=== PATIENT | female | born 1975 | race Caucasian/White ===

== ENCOUNTER 2017-05-04 14:43 | Observation (INO) | payer OTHER ==
[~2017-05-04] VITALS: Ht 162.6 cm; Wt 47.5 kg
[2017-05-04 14:47] VITALS: BP 128/84; PULSE 88; RESP 16; O2SAT 100
--- NOTE | 2017-05-04 15:23 | ED.REPORT ---
HPI-Abd Pain F Under 41 Date of Service May 04, 2017 ED Provider: Laura Martinez MD Pt is a 41 year old female with a hx of terminal ovarian cancer presenting to the ED complaining of a colostomy blockage. She states that she has not had any output from her colostomy bag for the last 3 days. She has had some prolapse of the ostomy that was always reducible in the past, now her ostomy is swollen, firm and painful with only blood tinged liquid and gas in the bag. 2 weeks ago she began to have suprapubic pain and swelling, initially significant vomiting that is now nausea and vomiting every couple days. urinary incontinence ( leakage), and swelling of her lymph nodes. She had radiation in December 2016, and had chemo a few years ago, but is no longer in treatment because the cancer has progressed so far. She has a fentanyl patch and takes oxycodone but does not usually use them, used last week but not currently. She takes Letrozole daily as a cancer treatment. The pt is visiting from the [facility] where she has had all prior care, she has scheduled a return home in 3 days due to her recent health issues. Nursing Notes Stated Complaint: CANCER/POSS BLOCKAGE W/COLOSTOMY Chief Complaint: Female Abdominal Pain Nursing Notes Reviewed: Yes Allergies: Coded Allergies: No Known Allergies (Unverified , 05/04/17) General Time Seen by MD: 15:05 Chief Complaint Other (Colostomy blockage) Hx Obtained From: Patient Arrived By: Walk-in Sudden in Onset?: No Onset Occurred: 3 days ago Symptom Duration: Since onset Progression since Onset: Constant Location: : Pelvis: Suprapubic Quality: Painful Severity: Current: Moderate Severity: Maximum: Severe Recent Healthcare: Recent doctor visit, Recent hospitalization Similar Sx Previous: Yes Past Medical History Past Medical History Terminal ovarian cancer Past Surgical History Colostomy, splenectomy, hysterectomy, oophorectomy Smoking History Unknown if Ever Smoker Social History Other Social History: From out of town Ambulatory Status Independent Review of Systems Abdominal swelling, problems with ostomy bag, swollen lymph nodes GI: Reports: Abdominal pain, Nausea, Vomiting Female: Reports: Incontinence Complete sys rev & neg: except as marked. Physical Exam Initial Vital Signs Vital Signs (First) Date Time Temp Pulse Resp B/P Pulse Ox O2 Delivery O2 Flow Rate FiO2 05/04/17 14:47 36.9 88 16 128/84 100 Room Air Initial VS: Reviewed Head / Eyes: Atraumatic, Normocephalic, PERRL ENT: Mucous membranes moist, Conjunctiva normal, No scleral icterus Extremities: Vascular intact, Neuro intact, No swelling, No tenderness Skin: Warm, Dry, No cyanosis Neurologic: Alert, Oriented, Nonfocal Psychiatric: Mood/affect normal, Behavior normal, Normal thought content General/Constitutional: Awake, Alert, No acute distress Respiratory / Chest: Atraumatic, Breath sounds NL, Breath sounds = bilat, No respiratory distress Cardiovascular: Heart rate NL, Regular rhythm, Heart sounds NL, No gallop, No murmurs, No rubs, Cap refill not delayed Abdomen: Atraumatic Tenderness/Guarding/Rebound: Positive: Tender RLQ... (Moderate) Bowel Sounds / Distention: Positive: Distention mild RLQ firm swelling that is tender. Tenderness at the ostomy bag. Colostomy erythematous and swollen. Serous fluid in ostomy bag. Back: Atraumatic, Inspection NL Lymphatic: No gross adenopathy Small lymph left axilla. Interpretation & Diagnostics Lab Results Interpretation Result Diagram: 05/04/17 1555 05/04/17 1555 Test 05/04/17 15:55 05/04/17 18:44 05/04/17 23:26 White Blood Count 8.9th/mm3 (3.8-10.1) Red Blood Count 3.61mil/mm3 (3.90-5.20) Hemoglobin 11.7g/dL (12.0-15.6) Hematocrit 35.8% (35.0-46.0) Mean Corpuscular Volume 99.2fL (81-100) Mean Corpuscular Hemoglobin 32.4pg (27.0-35.0) Mean Corpuscular Hemoglobin Concent 32.7% (32.0-37.0) Red Cell Distribution Width 13.1% (12.3-15.4) Platelet Count 407bil/L (150-400) Sodium Level 140mEq/L (134-144) Potassium Level 3.8mEq/L (3.5-5.2) Chloride Level 97mEq/L (97-108) Carbon Dioxide Level 28mmol/L (18-29) Blood Urea Nitrogen 14mg/dL (6-24) Creatinine 0.66mg/dL (0.57-1.00) Estimat Glomerular Filtration Rate 142mL/min (>59) Glucose Level 93mg/dL (60-99) Calcium Level 9.2mg/dL (8.5-10.1) Total Bilirubin 0.2mg/dL (0.0-1.2) Aspartate Amino Transf (AST/SGOT) 16U/L (0-50) Alanine Aminotransferase (ALT/SGPT) 9U/L (0-32) Alkaline Phosphatase 88U/L (25-150) Total Protein 7.6g/dL (6.4-8.4) Albumin 3.8g/dL (3.4-5.0) Hold Urine Received (Received) Urine Color Yellow (YELLOW) Urine Appearance Hazy (CLEAR,HAZY) Urine pH 7.5 (5.0-8.0) Urine Specific [place] 1.010 (1.003-1.035) Urine Protein Negativemg/dL (NEG,TRACE) Urine Glucose (UA) Negativemg/dL (NEGATIVE) Urine Ketones Negativemg/dL (NEGATIVE) Urine Occult Blood Negative (NEGATIVE) Urine Nitrite Negative (NEGATIVE) Urine Bilirubin Negative (NEGATIVE) Urine Urobilinogen Normalmg/dL (NORMAL) Urine Leukocyte Esterase Small (NEGATIVE) Urine RBC 0-2/hpf (0-2) Urine WBC 6-10/hpf (0-5) Urine Epithelial Cells Few/hpf (NONE-MOD) Urine Crystals None seen (NONE SEEN) Urine Bacteria Few/hpf (NONE-FEW) Urine Hyaline Casts None/lpf (NONE) Urine Granular Casts None seen (NONE SEEN) Urine Waxy Casts None seen (NONE SEEN) Urine Red Blood Cell Casts None seen (NONE SEEN) Urine White Blood Cell Casts None seen (NONE SEEN) Urine Mucus None seen (None Seen) Urine Trichomonas None seen (NONE SEEN) Urine Yeast None (NONE SEEN) Urinalysis Comment Amorphous sediment Urine Culture Reflexed Indicated CT Abd / Pelvis Interpretation IMPRESSION: Abnormal appearing ostomy along the left side of it suggesting edema or tumor involvement. Generous amount of fecal material throughout the colon. I do not think bowel obstruction is occurring at this point. There are some minimally prominent small bowel loops present. Dictated by: Jeffrey Glass M.D. on 05/04/2017 at 18:57 Study type: Abdom CT oral contrast Interpretation / Wet Read by: Interpret - Radiologist, Discussed w radiologist Re-Eval/Medical Decision Med Decision/Clinical Course Med Decision/Clinical Course: 5-year-old female with history of ovarian cancer with abdominal pain and nausea, CT findings of constipation proximal to her colostomy. Patient's ostomy is edematous, attempted urinary trigger application and reduction, remained edematous but patent. Suspect that her prolapse will not reduce until her proximal constipation improves. She was administered a Fleet enema and did have stool output. She was admitted to the hospital for continued nausea and abdominal discomfort. Patient's urinalysis returned after she was admitted with signs of UTI. Discussed with Laura Aparicio admitting resident, she will determine whether to treat with antibiotics as some ? whether truly UTI. Re-Evaluation/Progress #1: Time of Eval: 19:33 Patient Status: Condition improved Re-Evaluation/Progress Note: Discussed consultation with Dr. Dwyer and plan for applying sugar and then an enema. Pt understands and agrees with plan. Re-Evaluation/Progress #2: Time of Eval: 21:15 Patient Status: Condition improved Re-Evaluation/Progress Note: Ostomy patent to finger, fleet enema administered. Re-Evaluation/Progress #3: Time of Eval: 22:00 Patient Status: Condition improved Re-Evaluation/Progress Note: Large amount of liquid stool in ostomy but pt still feels nauseated, does not feel like she can go home. Discussed plan for admission. Consultation #1: Call Returned at: 16:47 Note: Spoke to radiology. Focal dilatation of common bile duct w/o intrahepatic dilatation, normal LFTs and bilirubin. No cholecystitis on US per radiology. Will order CT ABD and pelvis. Consultation #2: Referral / Consult Name: Jo-Ann Dwyer MD Consulted With: Surgeon Call Returned at: 19:25 Electric Melt Operator: Will see patient Note: Recommends covering the ostomy site with granulated sugar to the stoma and covering it with a washcloth to reduce the prolapse. Maybe an enema after that, she will see the patient. Consultation #3: Referral / Consult Name: Verna Torres DO Consulted With: Hospitalist Call Returned at: 22:30 Electric Melt Operator: Will see patient, Agrees with plan, Accepts admit Consultation #4: Referral / Consult Name: Jo-Ann Dwyer MD Consulted With: Surgeon Call Returned at: 22:43 Note: Informed Dr. Dwyer that the pt will be admitted and that her colostomy prolapse was not reducible with the sugar. Counseled Regarding: Diagnosis, Lab results, Need for admission Discharge & Departure Primary Impression: Ovarian cancer Laterality: unspecified laterality Qualified Code: C56.9 - Malignant neoplasm of unspecified ovary Additional Impressions: Colostomy prolapse Nausea Disposition: ADMITTED TO HOSPITAL Discharge Condition All VS Reviewed: Yes Condition: Improved Scribe Attestation Portions of this note were transcribed by Maricruz Shultz. I, Dr. Martinez, personally performed the history, physical exam and medical decision-making; I reviewed and confirmed the accuracy of the information in the transcribed note. Signed by: Jeni Hutchison, 05/04/17. Laura Martinez MD May 04, 2017 15:23 MARICRUZ SHULTZ May 04, 2017 15:30
[2017-05-04 16:03] LABS: Mean Corpuscular Hemoglobin 32.4 pg (27.0-35.0); Mean Corpuscular Volume 99.2 fL (81-100)
[2017-05-04] MEDS: Ondansetron 2 mg/mL 2 mL Inj IVPUSH ONE ×2 (16:32→16:41)
[2017-05-04] MEDS ORDERED: Iohexol 300 mg/mL 30 mL Inj PO ONE (16:35)
[2017-05-04] MEDS ORDERED: 0.9% Sodium Chloride 1,000 ML IV ONE (17:15)
[2017-05-04 18:43] VITALS: BP 115/74; PULSE 90; RESP 20; O2SAT 100
[2017-05-04] MEDS ORDERED: Ondansetron 2 mg/mL 2 mL Inj IVPUSH ONE (19:00)
--- NOTE | 2017-05-04 19:08 | DRSVH ---
PROCEDURE: CT ABDOMEN AND PELVIS WITH CONTRAST (PNL-7102) INDICATIONS: lower abdominal pain, ostomy blocked TECHNIQUE: After the administration of oral and intravenous contrast, 5 mm thick sections acquired from the diap hragms to the symphysis. 5 mm thick coronal and sagittal reformats were performed. For radiation do se reduction, the following was used: automated exposure control, adjustment of mA and/or kV accordi ng to patient size. COMPARISON: None. FINDINGS: Image quality: Good ABDOMEN: Lung bases: Lung bases are clear. Heart size is normal. Solid organs: Liver and spleen are normal in size and enhancement. Gallbladder grossly normal Bilia ry system is non-dilated. Pancreas enhances normally. No adrenal nodules. Left kidney is obstructed with mild hydronephrosis and hydroureter down to approximately the iliac vessels. 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 without hydronephrosis. Peritoneum and bowel: Contrast appears to be moving through small bowel loops. There are some small b owel loops with air fluid level possible ileus. The appearance is not that of obstruction. There is a generous amount of fecal material throughout the colon. There is a colostomy in the left abdomen and the left side of the colostomy has some soft tissue edema or possibly tumor involvement along its ma rgin seen for instance in series 2 image 49, the montage image. No free air or fluid or bowel wall th ickening or air in the bowel wall is seen. There is a generous amount of peritoneal calcifications in whether this is some type of treatment for sclerosis or whether it is calcification from metastatic disease into the peritoneum I cannot tell. This calcification pattern is more coarse than I would expect for psammomatous calcifications. Nodes and vessels: No retroperitoneal or mesenteric adenopathy. Aorta and inferior vena cava are no rmal in caliber. Miscellaneous: No ventral hernias. PELVIS: Genitourinary: Bladder wall thickness is normal. Miscellaneous: No inguinal hernias or adenopathy. Bones: No suspicious bony lesions. No vertebral body compression fractures. IMPRESSION: Abnormal appearing ostomy along the left side of it suggesting edema or tumor involvement. Generous amount of fecal material throughout the colon. I do not think bowel obstruction is occurring at this point. There are some minimally prominent small bowel loops present. Dictated by: Jeffrey Glass M.D. on 05/04/2017 at 18:57 Approved by: Jeffrey Glass M.D. on 05/04/2017 at 19:06
[2017-05-04] MEDS ORDERED: Sodium Biphos-Phos 133 mL Enema RECTAL ONE (20:25)
[2017-05-04] MEDS ORDERED: MetoCLOpramide 5 mg/mL 2 mL Inj IVPUSH ONE (20:25)
[2017-05-04 22:13] VITALS: BP 103/72; PULSE 96; RESP 16; O2SAT 96
[2017-05-04] MEDS ORDERED: Alum-Mag Hydrox-Simeth 30 mL Suspension PO PRN (23:15)
[2017-05-04 23:59] LABS: APPEARANCE,URINE HAZY (CLEAR,HAZY); COLOR,URINE YELLOW (YELLOW); OCCULT BLOOD,URINE NEGATIVE (NEGATIVE); PH,URINE 7.5 (5.0-8.0); UROBILINOGEN,URINE NORMAL (NORMAL)
[2017-05-05] MEDS ORDERED: MetoCLOpramide 5 mg/mL 2 mL Inj IVPUSH PRN (00:45)
--- NOTE | 2017-05-05 00:46 | PCM.HPMED ---
Subjective Date of Service May 04, 2017 Primary Provider: Admitting Physician: Verna Torres DO Primary Care Physician: Other,Physician Attending Physician: Verna Torres DO Admit Status: From the Emergency Department Chief Complaint: Abdominal pain History of Present Illness: Patient is a 41-year-old female that presents to the emergency department planing of a colostomy blockage and nausea and vomiting. She has a history of terminal ovarian cancer Interview is limited secondary to patient fatigue. History was obtained from patient's friend and ED chart notes. Of note, patient is planning to return to [place] in 3 days. Patient has terminal ovarian cancer with a colostomy bag. Started having suprapubic pain and swelling approximately 2 weeks ago and developed nausea with vomiting every few days after. Previously emesis consisted of food, it is now bile. Patient has had some colostomy prolapse which in the past was reducible but is not at this time. It is firm and painful. Colostomy output has consisted of blood-tinged liquid and gas in the most recent dates. She admits to new urinary incontinence and swelling of axillary and femoral lymph nodes. Her last chemotherapy treatment was a few years ago and radiation was in December 2016. For pain control she is on fentanyl patch and oxycodone but she has limited use of oxycodone. Review of Systems: Unable to perform secondary to patient fatigue Allergies Coded Allergies: No Known Allergies (Unverified , 05/04/17) Home Medications Unable to obtain complete list due to patient fatigue and the fact that the rest of her health care has been in the [place] Letroxole unknown dose Amitriptyline 25 mg each night Zopiclone 7.5 mg each night PMH 1. Terminal ovarian cancer Surgical History 1. Colostomy 2. Splenectomy 3. Hysterectomy 4. Oophorectomy Family History To obtain secondary to patient fatigue Social History Hx Alcohol Use: Yes (rare) Hx Substance Use: Yes (CBD oil) Smoking Status: Unknown if Ever Smoker Exam Vital Signs Vital Sign - Last Date Time Temp Pulse Resp B/P Pulse Ox O2 Delivery O2 Flow Rate FiO2 05/04/17 22:13 96 16 103/72 96 Room Air 05/04/17 14:47 36.9 Exam Physical exam limited due to patient fatigue General: Somnolent, cachectic female. Minimal responsiveness to verbal questions. Cooperative with basic physical exam HEENT: NC/AT. Nontender sinuses, no nasal discharge. No thyromegaly appreciated. CV: Regular rate and rhythm, no murmurs, gallops, or rubs appreciated RESP: Clear to auscultation bilaterally, no wheezes or rhonchi appreciated ABD: Bowel sounds quiet, mild distention, tender to palpation throughout, colostomy with erythematous prolapse. EXT: No joint swelling, no edema appreciated LYMPH: Axillary and femoral adenopathy appreciated NEURO: Symmetric face. PSYCH: Unable to assess. Minimally responsive to verbal questions. Skin: No rashes or ecchymosis appreciated Lab and Diagnostics Result Diagram: 05/04/17 1555 05/04/17 1555 X-Rays, CTs and MRIs PROCEDURE: CT ABDOMEN AND PELVIS WITH CONTRAST ([id number]) IMPRESSION: Abnormal appearing ostomy along the left side of it suggesting edema or tumor involvement. Generous amount of fecal material throughout the colon. I do not think bowel obstruction is occurring at this point. There are some minimally prominent small bowel loops present. Assessment & Plan Patient is a 41-year-old female that presents with nausea and vomiting. 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 Nausea with vomiting, present upon admission ongoing -Patient has poor colostomy output with heavy stool burden per CT without indication of current blockage -Patient was given oral contrast for CT and an enema via colostomy. Enema produced some output. Expect oral contrast to aid with output -Assessment morning for output, may require additional enema -Scheduled Reglan 2. Colostomy with prolapse, present upon admission and ongoing -Sugar placed on colostomy per recommendation of surgery in the emergency department with little improvement -Colostomy is patent -Consult surgery tomorrow morning 3. Ovarian cancer, present upon admission and ongoing -Patient takes Letrozole daily, continue outpatient medication once we find out her regimen, tomorrow. 4. Lymphadenopathy, present upon admission and ongoing -Likely result of her metastatic cancer -No indication of pneumonia, flu 4. Urinary incontinence, present upon admission ongoing -UA positive for small amount of leukocyte esterase, and few bacteria. Also positive for epithelial cells and negative for nitrites. Sent for culture. -Patient's tumor burden is near her bladder, likely source of incontinence. Patient denies pain with urination. -Possible urinary tract infection, culture pending. Considering patient's lymphadenopathy, new incontinence, and comorbidities, treat -Start ceftriaxone Patient is being admitted as observation status. I expect her to spend less than 2 midnights in the hospital GI Prophylaxis: Not indicated VTE Prophylaxis: SCDs Resuscitation Status: CPR: Attempt Resuscitation Attending Statement The patient was seen and examined together with house staff on 05/04/2017 and I agree with the history, exam and plan as outlined in the note above. Laura Ramesh DO May 05, 2017 00:02 Verna Torres DO May 05, 2017 04:06
[2017-05-05 01:00] VITALS: BP 97/59; PULSE 97; RESP 16; O2SAT 95
[2017-05-05] MEDS ORDERED: AMT25T PO (01:26)
[2017-05-05] MEDS ORDERED: LETR2.5T4 PO (01:26)
[2017-05-05] MEDS: cefTRIAXone Inj 2,000 MG in Dextrose 5% Minibag Plus 50 ML IV SCH ×2 (01:39→15:03)
[2017-05-05] MEDS: Ondansetron 2 mg/mL 2 mL Inj IVPUSH PRN ×2 (02:05→06:01)
[2017-05-05 06:05] VITALS: BP 106/64; PULSE 99; RESP 16; O2SAT 95
[2017-05-05] MEDS: Polyethylene Glycol (PEG) 17 Gm Powder PO PRN (10:03)
[2017-05-05] MEDS: 0.9% Sodium Chloride 1,000 ML IV SCH ×2 (13:01→23:38)
--- NOTE | 2017-05-05 13:03 | CONS ---
[address] [address] CONSULTATION REPORT PATIENT: RANJEET APONTE : 1975 MR#: [id number] ADMIT: 05/04/2017 JOB ID: [id number] DATE OF SERVICE: 05/05/2017 CHIEF COMPLAINT/IDENTIFICATION: Dr. Canchola has asked me to see this 41-year-old woman with decreased colostomy output. HISTORY OF PRESENT ILLNESS: This is an unfortunate 41-year-old woman from the [facility] who is several years into a diagnosis of stage IV ovarian cancer. This has been recalcitrant to chemotherapy and she is known to have terminal disease. She is currently on hormonal therapy. She is at the end of the six week trip to [place] and the to visit friends. Her last treatment was radiation therapy to the pelvis, finished up in December of this year. She has had intermittent nausea and vomiting, intermittent decreased colostomy output, intermittent colostomy prolapse, and intermittent urinary incontinence. All of these symptoms have become slowly increased in their frequency and severity, and she vomited several times yesterday and came to the emergency department feeling fatigued as well, and was admitted to the hospital for IV fluid. She was felt not to have a small bowel obstruction by CT scan. She tells me that her emesis is usually watery, sometimes is undigested food, but is never feculent or foul smelling. Currently, she feels well. She does have a plane reservation direct from [place] to [place] for roughly a 10-hour flight on varsity baseball coach scheduled for Sunday. She had been hoping to spend the next two days finishing up her visit with a good friend who was like a big sister to her in [place]. PAST MEDICAL HISTORY: As above. MEDICATIONS: Per admission history and physical. ALLERGIES: No known allergies. SOCIAL HISTORY: She is x3 years. Lives alone though she has a mother and siblings in the [place] and [place]. REVIEW OF SYSTEMS: Noncontributory. PHYSICAL EXAMINATION: An attractive slender woman in no acute distress. Afebrile. Pulse is in the high 90s. Blood pressure is 106/64. Room air saturation is 95%. Her abdomen has a well-healed incision, without hernia. The ostomy is quite edematous, though I am able to digitally probe it and it is not completely obstructed. There is some prolapse but it is primarily edematous mucosa. There is a fullness in the suprapubic region and she is tender. She does have radiation tattoo there. She has a long midline scar. LABORATORY DATA: Her white count yesterday was 8.9, her hematocrit was 36. Electrolytes were normal. LFTs were normal. IMAGING: I have reviewed her CT scan, the report and images. I do think there is some prominent small bowel loop, though there are also decreased small bowel loops. IMPRESSION AND PLAN: This is an unfortunate 41-year-old woman who has a fair amount of tumor burden in her abdomen. I think her symptoms are just gradually progressive and I think there is no one issue to address that would solve all of her symptoms. We talked about her goals and her expectations and I have outlined three possible options. One would be to say that her symptoms have gotten to the point where she should be medically evacuated. She does have travel insurance, though she is not quite certain of the specifics. The other would be to keep her here in the hospital, hydrated and symptomatically treated until sometime on Sunday, and then discharge her to go up to [place] to take her commercial flight. I think that this might be uncomfortable for her but we could certainly discharge her in a medically stable condition that would allow her to return home to the [place]. The other option would be to simply hydrate her up here, give her liquid pain medication and sublingual Zofran, let her spend the last 24-48 hours with her friend from [place], and then have her take a commercial flight back, always with the caveat that if she is were to get worse between now and her flight back to come back to the hospital and we would then arrange for medical evacuation if needed. Regarding further enemas to her ostomy, I think that a lot of her problem is the edema and prolapse, as well as possible tumor around the ostomy site, and I think that enemas will exacerbate her problem as much as help her, and I would simply give her stool softeners from above. Care management will look into the details of medical evacuation and what that would cost her, and I will come back after my OR case this morning and discuss the options with her and see which way she wants to go.
[2017-05-05 15:12] VITALS: BP 111/71; PULSE 82; RESP 16; O2SAT 99
--- NOTE | 2017-05-05 17:23 | PCM.PNMED ---
Subjective Date of Service May 05, 2017 Subjective continuous to have nausea , passing gas, no BM,colostomy empty Exam Vital Signs Vital Sign - Last Date Time Temp Pulse Resp B/P Pulse Ox O2 Delivery O2 Flow Rate FiO2 05/05/17 15:12 36.9 82 16 111/71 99 Room Air Intake and Output 05/04/17 05/04/17 05/05/17 Cumulative From/Thru 14:59 22:59 06:59 05/04/17 14:47 - 05/05/17 00:01 Intake Total 999 ml 999 ml Balance 999 ml 999 ml Intake IV Total 999 ml 999 ml Exam Physical exam limited due to patient fatigue General: Somnolent, cachectic female. Minimal responsiveness to verbal questions. Cooperative with basic physical exam HEENT: NC/AT. Nontender sinuses, no nasal discharge. No thyromegaly appreciated. CV: Regular rate and rhythm, no murmurs, gallops, or rubs appreciated RESP: Clear to auscultation bilaterally, no wheezes or rhonchi appreciated ABD: Bowel sounds quiet, mild distention, tender to palpation throughout, colostomy with erythematous prolapse.empty colostomy EXT: No joint swelling, no edema appreciated LYMPH: Axillary and femoral adenopathy appreciated NEURO: Symmetric face. PSYCH: Unable to assess. Minimally responsive to verbal questions. Skin: No rashes or ecchymosis appreciated IVs and Medications Medications Reviewed: Medications were reviewed in detail Lab and Diagnostics Result Diagram: 05/04/17 1555 05/04/17 1555 X-Rays, CTs and MRIs PROCEDURE: CT ABDOMEN AND PELVIS WITH CONTRAST ([id number]) IMPRESSION: Abnormal appearing ostomy along the left side of it suggesting edema or tumor involvement. Generous amount of fecal material throughout the colon. I do not think bowel obstruction is occurring at this point. There are some minimally prominent small bowel loops present. Assessment & Plan Patient is a 41-year-old female that presents with nausea and vomiting. 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 Nausea with vomiting due to suspected early obstruction , present upon admission ongoing -Patient has poor colostomy output with heavy stool burden per CT without indication of current blockage -Patient was given oral contrast for CT and an enema via colostomy. Enema produced some output. Expect oral contrast to aid with output -Scheduled Reglan -Patient here visiting and will fly back to [place] from [place] on Sunday. Spoke with surgery ,Dr Byrd discussed options of conservative management with IV fluids here vs medical evacuation to her country vs taking commercial flight with slightly increased risk -Patient communicating with her [facility] provider about coverage -We will keep the patient here on IV fluids for overnight 2. Colostomy with prolapse, present upon admission and ongoing -Sugar placed on colostomy per recommendation of surgery in the emergency department with little improvement -Colostomy is patent -Consult surgery tomorrow morning 3. Ovarian cancer, present upon admission and ongoing -Patient takes Letrozole daily, continue outpatient medication once we find out her regimen, tomorrow. 4. Lymphadenopathy, present upon admission and ongoing -Likely result of her metastatic cancer -No indication of pneumonia, flu 4. Urinary incontinence, present upon admission ongoing -UA positive for small amount of leukocyte esterase, and few bacteria. Also positive for epithelial cells and negative for nitrites. Sent for culture. -Patient's tumor burden is near her bladder, likely source of incontinence. Patient denies pain with urination. -Possible urinary tract infection, culture pending. Considering patient's lymphadenopathy, new incontinence, and comorbidities, treat -Start ceftriaxone Patient is being admitted as observation status. I expect her to spend less than 2 midnights in the hospital GI Prophylaxis: Not indicated VTE Prophylaxis: SCDs Resuscitation Status: CPR: Attempt Resuscitation Fernie Canchola MD May 05, 2017 17:23
[2017-05-05 20:00] VITALS: BP 108/69; PULSE 97; RESP 16; O2SAT 100
[2017-05-06] MEDS: cefTRIAXone Inj 2,000 MG in Dextrose 5% Minibag Plus 50 ML IV SCH ×2 (01:37→13:52)
[2017-05-06 04:45] VITALS: BP 121/83; PULSE 94; RESP 16; O2SAT 94
[2017-05-06] MEDS: Ondansetron 2 mg/mL 2 mL Inj IVPUSH PRN ×2 (08:10→16:23)
--- NOTE | 2017-05-06 10:55 | PROG NOTE ---
[address] [address] PROGRESS NOTE PATIENT: RANJEET APONTE : 1975 MR#: [id number] ADMIT: 05/04/2017 JOB ID: [id number] DATE: 05/06/2017 SUBJECTIVE: She remains afebrile, stable vital signs. She has had no further emesis she continues to pass gas and a small amount of liquid stool from her colostomy. She notes increasing mons edema and increased urinary incontinence. PHYSICAL EXAMINATION: Her abdomen is benign. There are no new labs today. ASSESSMENT AND PLAN: She appears comfortable and relatively asymptomatic though I am concerned about the increasing stomal edema and that she may be fairly close to having a complete obstruction at her stoma as well. Based on her previous imaging I think there may be an aspect of focal small bowel narrowing secondary to a tumor. She had plans to return to the [place] tomorrow, but at this point it appears that her travel insurance is going to delay that return and arrange for her to fly back with an attendant. At this point, there is no intervention that I recommend. I would avoid manipulating her stoma as I would not want increasing edema though if preferred she becomes completely obstructed I think she would need to go to the endoscopy suite or to the OR and under anesthesia have the stoma interrogated and possibly dilated. Currently the stoma will still accommodate a finger through the fascia. At this point, I think the most important thing for her overall care would be to get her back to the [place] as even though she appears fairly active and overall vital, I think it is possible that she is fairly close to requiring hospice level care.
[2017-05-06] MEDS: 0.9% Sodium Chloride 1,000 ML IV SCH ×2 (11:50→20:54)
[2017-05-06 12:32] VITALS: BP 121/79; PULSE 86; RESP 16; O2SAT 99
--- NOTE | 2017-05-06 16:40 | PCM.PNMED ---
Subjective Date of Service May 06, 2017 Subjective continues to have worsening of colostomy outlet swelling . she is passing gas and small ( 5ml ) liquid stool in bag.has some nausea but no vomiting . has slight lower abdominal pain but no distension. Exam Vital Signs Vital Sign - Last Date Time Temp Pulse Resp B/P Pulse Ox O2 Delivery O2 Flow Rate FiO2 05/06/17 12:32 37.1 86 16 121/79 99 Room Air Intake and Output 05/05/17 05/05/17 05/06/17 Cumulative From/Thru 15:00 23:00 07:00 05/04/17 14:47 - 05/06/17 06:41 Intake Total 1560 ml 1277 ml 3836 ml Output Total 10 ml 10 ml Balance 1550 ml 1277 ml 3826 ml Intake Oral 1120 ml 1120 ml IV Total 440 ml 1277 ml 2716 ml Output Emesis 10 ml 10 ml # Voids 3 3 Exam Physical exam limited due to patient fatigue General: Somnolent, cachectic female. Minimal responsiveness to verbal questions. Cooperative with basic physical exam HEENT: NC/AT. Nontender sinuses, no nasal discharge. No thyromegaly appreciated. CV: Regular rate and rhythm, no murmurs, gallops, or rubs appreciated RESP: Clear to auscultation bilaterally, no wheezes or rhonchi appreciated ABD: Bowel sounds quiet, mild distention, tender to palpation throughout, colostomy with erythematous prolapse.and stenosis, colostomy bag has 5ml brown liquid stool EXT: No joint swelling, no edema appreciated LYMPH: Axillary and femoral adenopathy appreciated NEURO: Symmetric face.. Skin: No rashes or ecchymosis appreciated IVs and Medications Medications Reviewed: Medications were reviewed in detail Lab and Diagnostics Result Diagram: 05/04/17 1555 05/04/17 1555 X-Rays, CTs and MRIs PROCEDURE: CT ABDOMEN AND PELVIS WITH CONTRAST ([id number]) IMPRESSION: Abnormal appearing ostomy along the left side of it suggesting edema or tumor involvement. Generous amount of fecal material throughout the colon. I do not think bowel obstruction is occurring at this point. There are some minimally prominent small bowel loops present. Assessment & Plan Patient is a 41-year-old female that presents with nausea and vomiting. 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 Nausea with vomiting due to suspected early obstruction , present upon admission ongoing -due colostomy site edema vs cancer infiltration -Patient has poor colostomy output with heavy stool burden per CT without indication of current blockage -Patient was given oral contrast for CT and an enema via colostomy. Enema produced some output. Expect oral contrast to aid with output -Scheduled Reglan -Patient here visiting and will fly back to [place] from [place] on Sunday. Spoke with surgery ,Dr Byrd discussed options of conservative management with IV fluids here vs medical evacuation to her country vs taking commercial flight with slightly increased risk. Patient inclined to fly to [facility] tomorrow . she will make final decision tomorrow -Patient communicating with her [employer] provider about coverage -We will keep the patient here on IV fluids for overnight.possible discharge in am if she decided to keep her flight in the afternoon from [place] 2. Colostomy with prolapse, present upon admission and ongoing -Sugar placed on colostomy per recommendation of surgery in the emergency department with little improvement -Colostomy is patent 3. Ovarian cancer, present upon admission and ongoing -Patient takes Letrozole daily, continue outpatient medication once we find out her regimen, tomorrow. 4. Lymphadenopathy, present upon admission and ongoing -Likely result of her metastatic cancer -No indication of pneumonia, flu 4. Urinary incontinence, present upon admission ongoing -UA positive for small amount of leukocyte esterase, and few bacteria. Also positive for epithelial cells and negative for nitrites. Sent for culture. -Patient's tumor burden is near her bladder, likely source of incontinence. Patient denies pain with urination. -Possible urinary tract infection, culture pending. Considering patient's lymphadenopathy, new incontinence, and comorbidities, treat -continue ceftriaxone Patient is being admitted as observation status. possible discharge GI Prophylaxis: Not indicated VTE Prophylaxis: SCDs Resuscitation Status: CPR: Attempt Resuscitation Fernie Canchola MD May 06, 2017 16:40
[2017-05-06] MEDS: Polyethylene Glycol (PEG) 17 Gm Powder PO PRN (16:44)
[2017-05-06 19:13] VITALS: BP 114/71; PULSE 95; RESP 16; O2SAT 98
[2017-05-07 00:06] VITALS: BP 113/76; PULSE 78; RESP 17; O2SAT 97
[2017-05-07] MEDS: cefTRIAXone Inj 2,000 MG in Dextrose 5% Minibag Plus 50 ML IV SCH (00:36)
[2017-05-07] MEDS: 0.9% Sodium Chloride 1,000 ML IV SCH (03:50)
--- NOTE | 2017-05-07 07:37 | CONS ---
[address] [address] CONSULTATION REPORT PATIENT: RANJEET APONTE : 1975 MR#: [id number] ADMIT: 05/04/2017 JOB ID: [id number] DATE OF SERVICE: 05/04/2017 The patient is seen in consultation for Dr. Martinez in the ED regarding a prolapsing colostomy that is edematous. HISTORY OF PRESENT ILLNESS: This is a 41-year-old female visiting from the [place]. She is end stage cancer with metastatic disease, undergoing hormonal treatment only. She is, I believe, the equivalent of hospice in this country. She is traveling and visiting here as a last visit. Notice that she has had decreased output from the stoma over the last three days. She is passing gas. The stoma is now protruding further and is edematous. She is having some abdominal pain. CT scan was performed with p.o. and IV contrast. There is tumor burden in the pelvis, but no obstructing signs in the GI tract. There is some slightly dilated small bowel. She has a significant stool burden within the active portion of her colon, particularly the transverse and descending to the colostomy site. She has had some vomiting over the past couple of days and it is intermittent, which I also believe may be related to the constipation. PHYSICAL EXAMINATION: Her abdomen is soft, flat. She is very thin. Her stoma is edematous but still functional. IMPRESSION: Constipation with edematous stoma. PLAN: The p.o. contrast from the CT scan will benefit her in softening the stool. My recommendations are a granulated sugar compress to the stoma itself to decrease some of the edema, then attempt a Fleet's enema via the stoma itself. The patient would prefer not to have hospitalization. I had a short discussion with the patient in the room with her friend recommending MiraLAX at home and possible enemas through the stoma at home if this continues to be a problem. I spoke with the ER doctor who believes that she can help her in the emergency department rather than admission. Happy to follow along of the patient is hospitalized.
--- NOTE | 2017-05-07 07:48 | PCM.DIMED ---
Discharge Instructions Date of Service May 07, 2017 Dates of Hospitalization May 04, 2017 at 23:43 Discharge Diagnosis Discharge Diagnosis 1. suspected early bowel obstruction , present upon admission, ongoing -due to partial colostomy blockage secondary to colostomy site edema vs cancer infiltration 2. Colostomy with prolapse, present upon admission and ongoing 3. Ovarian cancer, present upon admission and ongoing 4. Symptomatic UTI, present upon admission, improved Diet Discharge Diet: Other (saurabh liquid diet ) Activity Discharge Activity: Limited until seen by PCP Patient Instructions Patient Instructions You were hospitalized due to nausea and low colostomy output. This seems to be due to early partial bowel obstruction secondary to colostomy blockage. You are able to pass gas and very small amount of liquid stool for now. Your colostomy site is swollen and prolapsed which is causing a partial obstruction. Colostomy swelling can be due to prolapse or infiltration by cancer. You were managed conservatively with IV fluids. Enema tried initially with out any improved output.Further enema deferred given no response and concern for worsening colostomy swelling due to site irritation with using an enema. Our surgeon Dr Byrd thinks your condition may progressively worsen and may require surgery. Understanding risks ,You opted to go to your home country before your condition worsens after detailed discussion with me and surgeon Dr. Byrd . Your condition may worsen during traveling but we do not think you will end up with full-blown bowel obstruction in 9 hour flight given that you are passing gas and small amount of stool. You do not have vomiting or abdominal distention at this point. You may have worsening of your nausea during flight. Please take Zofran as prescribed. Please go to your hospital / providers immediately once you arrive in your home country . You will need hospitalization and eventually surgery if your condition worsens. I will write a medical letter on your behalf to airport and airlines staff so that they facilitate your check in . Fernie Canchola MD May 07, 2017 07:48
[2017-05-07] MEDS ORDERED: ONDA8TAB7 PO (07:49)
[2017-05-07 08:00] VITALS: BP 105/68; PULSE 72; RESP 18; O2SAT 100
--- NOTE | 2017-05-07 08:00 | PCM.DC.MED ---
Discharge Summary Date of Service May 07, 2017 Dates of Hospitalization Date of Hospital Admission May 04, 2017 at 23:43 Date of Discharge: May 07, 2017 Providers: Admitting Physician: Verna Torres DO Primary Care Physician: Other,Physician Attending Physician: Fernie Canchola MD Diagnosis at Time of Discharge Diagnosis at Time of Discharge 1. suspected early bowel obstruction , present upon admission, ongoing -due to partial colostomy blockage secondary to colostomy site edema vs cancer infiltration 2. Colostomy with prolapse, present upon admission and ongoing 3. Ovarian cancer, present upon admission and ongoing 4. Symptomatic UTI, present upon admission, improved Consultations surgery Dr Byrd Procedures XRay, CTs & MRIs PROCEDURE: CT ABDOMEN AND PELVIS WITH CONTRAST ([id number]) IMPRESSION: Abnormal appearing ostomy along the left side of it suggesting edema or tumor involvement. Generous amount of fecal material throughout the colon. I do not think bowel obstruction is occurring at this point. There are some minimally prominent small bowel loops present. Brief History per admission H&P by Dr Torres and Dr Aparicio-Sonal on 05/05/17 "Patient is a 41-year-old female that presents to the emergency department planing of a colostomy blockage and nausea and vomiting. She has a history of terminal ovarian cancer Interview is limited secondary to patient fatigue. History was obtained from patient's friend and ED chart notes. Of note, patient is planning to return to [place] in 3 days. Patient has terminal ovarian cancer with a colostomy bag. Started having suprapubic pain and swelling approximately 2 weeks ago and developed nausea with vomiting every few days after. Previously emesis consisted of food, it is now bile. Patient has had some colostomy prolapse which in the past was reducible but is not at this time. It is firm and painful. Colostomy output has consisted of blood-tinged liquid and gas in the most recent dates. She admits to new urinary incontinence and swelling of axillary and femoral lymph nodes. Her last chemotherapy treatment was a few years ago and radiation was in December 2016. For pain control she is on fentanyl patch and oxycodone but she has limited use of oxycodone." Hospital Course Patient is a 41-year-old unfortunate pleasant lady that presents with nausea . 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 suspected early bowel obstruction due to partial colostomy blockage secondary to colostomy site edema vs cancer infiltration , present upon admission ongoing -due colostomy site edema due to prolapse vs cancer infiltration -Patient has poor colostomy output with heavy stool burden per CT without indication of current blockage -Patient was given oral contrast for CT and an enema via colostomy. Enema produced minimal output. -She is able to pass gas and very small amount of liquid stool for now. colostomy site is swollen and prolapsed which is causing a partial obstruction.prolapse is not reducible. Colostomy swelling can be due to prolapse or infiltration by cancer.she was managed conservatively with IV fluids. Enema tried initially with very minimal ( 10ml liquid stool ) output.Further enema deferred given no response and concern for worsening colostomy swelling due to site irritation with using an enema. -surgeon Dr Byrd thinks her condition may progressively worsen and may require surgery.I and Dr Byrd discussed options with patient in detail .discussed options of conservative management with IV fluids here and surgery if worsens/ if she gets bowel obstruction vs medical evacuation to her country vs taking commercial flight with increased risk of her obstruction progressing during travel. Patient opted to fly to [facility] on a commercial flight. Obstruction is very early and partial at this point. She is passing gas and small amount of stool. No vomiting or abdominal distention yet. normoactive bowel sounds. Patient ambulating. Her symptoms have been stable over the past 48hrs. Possible but unlikely she will develop full-blown bowel obstruction in 9 hour flight -Patient communicated with her insurance regarding medical evacuation. She reportedly was told it will take days to process. Patient opted not to wait for that -Advised the patient to go to emergency department on arrival to her [place] country for evaluation 2. Colostomy with prolapse, present upon admission and ongoing -non reducible this time. Patient used to have prolapse which she manually reduces. Possible cancer infiltration 3. Ovarian cancer, present upon admission and ongoing -Patient takes Letrozole daily, continue outpatient medication 4. Lymphadenopathy, present upon admission and ongoing -Likely result of her metastatic cancer 4. Urinary incontinence, present upon admission ongoing -UA positive for small amount of leukocyte esterase, and few bacteria. Also positive for epithelial cells and negative for nitrites. Urine culture grows 25 ,000-50,000 mixed tayler. Treated with 3 days of ceftriaxone. Antibiotics discontinued. Incontinence improved -Patient's tumor burden is near her bladder, likely source of incontinence. Patient denies pain with urination. Patient discharged to fly to her home country She verbalized understanding of risks of worsening of her condition during travel but opted to go home stating she would not want to be hospitalized or get any surgical procedure if indicated here away from her family. Patient here visiting her friend in [place]. Exam Vital Signs (Last) Date Time Temp Pulse Resp B/P Pulse Ox O2 Delivery O2 Flow Rate FiO2 05/07/17 00:06 36.8 78 17 113/76 97 Room Air Exam General: cachectic female. HEENT: NC/AT. Nontender sinuses, no nasal discharge. No thyromegaly appreciated. CV: Regular rate and rhythm, no murmurs, gallops, or rubs appreciated RESP: Clear to auscultation bilaterally, no wheezes or rhonchi appreciated ABD: Bowel sounds normoactive, no distention, nontender to palpation, colostomy with erythematous prolapse and stenosis,passing gas .no visible infiltrative lesion to naked eye. colostomy bag has 5ml brown liquid stool.surgical scar seen EXT: No joint swelling, no edema appreciated LYMPH: Axillary and femoral adenopathy appreciated NEURO: Symmetric face.. Skin: No rashes or ecchymosis appreciated Test 05/04/17 15:55 05/04/17 18:44 05/04/17 23:26 White Blood Count 8.9th/mm3 (3.8-10.1) Red Blood Count 3.61mil/mm3 (3.90-5.20) Hemoglobin 11.7g/dL (12.0-15.6) Hematocrit 35.8% (35.0-46.0) Mean Corpuscular Volume 99.2fL (81-100) Mean Corpuscular Hemoglobin 32.4pg (27.0-35.0) Mean Corpuscular Hemoglobin Concent 32.7% (32.0-37.0) Red Cell Distribution Width 13.1% (12.3-15.4) Platelet Count 407bil/L (150-400) Sodium Level 140mEq/L (134-144) Potassium Level 3.8mEq/L (3.5-5.2) Chloride Level 97mEq/L (97-108) Carbon Dioxide Level 28mmol/L (18-29) Blood Urea Nitrogen 14mg/dL (6-24) Creatinine 0.66mg/dL (0.57-1.00) Estimat Glomerular Filtration Rate 142mL/min (>59) Glucose Level 93mg/dL (60-99) Calcium Level 9.2mg/dL (8.5-10.1) Total Bilirubin 0.2mg/dL (0.0-1.2) Aspartate Amino Transf (AST/SGOT) 16U/L (0-50) Alanine Aminotransferase (ALT/SGPT) 9U/L (0-32) Alkaline Phosphatase 88U/L (25-150) Total Protein 7.6g/dL (6.4-8.4) Albumin 3.8g/dL (3.4-5.0) Hold Urine Received (Received) Urine Color Yellow (YELLOW) Urine Appearance Hazy (CLEAR,HAZY) Urine pH 7.5 (5.0-8.0) Urine Specific [place] 1.010 (1.003-1.035) Urine Protein Negativemg/dL (NEG,TRACE) Urine Glucose (UA) Negativemg/dL (NEGATIVE) Urine Ketones Negativemg/dL (NEGATIVE) Urine Occult Blood Negative (NEGATIVE) Urine Nitrite Negative (NEGATIVE) Urine Bilirubin Negative (NEGATIVE) Urine Urobilinogen Normalmg/dL (NORMAL) Urine Leukocyte Esterase Small (NEGATIVE) Urine RBC 0-2/hpf (0-2) Urine WBC 6-10/hpf (0-5) Urine Epithelial Cells Few/hpf (NONE-MOD) Urine Crystals None seen (NONE SEEN) Urine Bacteria Few/hpf (NONE-FEW) Urine Hyaline Casts None/lpf (NONE) Urine Granular Casts None seen (NONE SEEN) Urine Waxy Casts None seen (NONE SEEN) Urine Red Blood Cell Casts None seen (NONE SEEN) Urine White Blood Cell Casts None seen (NONE SEEN) Urine Mucus None seen (None Seen) Urine Trichomonas None seen (NONE SEEN) Urine Yeast None (NONE SEEN) Urinalysis Comment Amorphous sediment Urine Culture Reflexed Indicated Discharge Medications Discharge Medications Amitriptyline (Amitriptyline) 25 Mg Tab 25 MG PO HS (Reported) Letrozole (Letrozole) 2.5 Mg Tablet 2.5 MG PO DAILY (Reported) As needed Ondansetron ODT (Zofran ODT) 8 Mg Tablet 8 MG PO Q4H PRN PRN For Nausea Prescribed by: FERNIE CANCHOLA MD Followup Plan Disposition: transfer abroad ,to be hospitalized on arrival Discharge Diet: Other (saurabh liquid diet ) Discharge Activity: Limited until seen by PCP Patient Instructions You were hospitalized due to nausea and low colostomy output. This seems to be due to early partial bowel obstruction secondary to colostomy blockage. You are able to pass gas and very small amount of liquid stool for now. Your colostomy site is swollen and prolapsed which is causing a partial obstruction. Colostomy swelling can be due to prolapse or infiltration by cancer. You were managed conservatively with IV fluids. Enema tried initially with out any improved output.Further enema deferred given no response and concern for worsening colostomy swelling due to site irritation with using an enema. Our surgeon Dr Byrd thinks your condition may progressively worsen and may require surgery. Understanding risks ,You opted to go to your home country before your condition worsens after detailed discussion with me and surgeon Dr. Byrd . Your condition may worsen during traveling but we do not think you will end up with full-blown bowel obstruction in 9 hour flight given that you are passing gas and small amount of stool. You do not have vomiting or abdominal distention at this point. You may have worsening of your nausea during flight. Please take Zofran as prescribed. Please go to your hospital / providers immediately once you arrive in your home country . You will need hospitalization and eventually surgery if your condition worsens. I will write a medical letter on your behalf to airport and airlines staff so that they facilitate your check in . Fernie Canchola MD May 07, 2017 08:00
[2017-05-07] MEDS ORDERED: Ondansetron 8 mg ODT Tablet PO ONE (09:40)
== END 2017-05-07 09:50 | disposition home or self-care (01) ==
LOC: SED 14:43 → MOC 23:43
PROVIDERS: ADMIT Internal Medicine; ATTEND Internal Medicine
DX: R11.2 Nausea with vomiting, unspecified (principal); K94.03 Colostomy malfunction; C56.9 Malignant neoplasm of unspecified ovary; R53.0 Neoplastic (malignant) related fatigue; N39.0 Urinary tract infection, site not specified; R59.1 Generalized enlarged lymph nodes; R32 Unspecified urinary incontinence; K59.00 Constipation, unspecified; F12.90 Cannabis use, unspecified, uncomplicated; Z92.3 Personal history of irradiation